=== PATIENT | female | born 1990 | race Hispanic/Latino ===

== ENCOUNTER 2018-03-07 20:35 | Observation (INO) | payer MEDICAID ==
[~2018-03-07] VITALS: Ht 152.4 cm; Wt 92.1 kg
[2018-03-07 20:56] LABS: APPEARANCE,URINE Clear (CLEAR); BILIRUBIN,URINE Negative (NEGATIVE); COLOR,URINE Yellow (YELLOW); GLUCOSE, URINE (UA) Negative (NEGATIVE); KETONES,URINE Negative (NEGATIVE); LEUKOCYTE ESTERASE ,URINE Trace (NEGATIVE); NITRATE,URINE Negative (NEGATIVE); OCCULT BLOOD,URINE Negative (NEGATIVE); PROTEIN,URINE Negative (NEGATIVE); UROBILINOGEN,URINE 0.2 mg/dL (0.2-1.0)
[2018-03-07 21:08] LABS: BACTERIA,URINE Rare /HPF (None Seen); RBC,URINE None Seen /HPF (0-1); WBC,URINE 0-1 /HPF (0-1)
[2018-03-07] MEDS ORDERED: PROMETHAZINE HCL 25 MG/ML 1ML AMPULE IM PRN (22:00)
[2018-03-07] MEDS ORDERED: MEPERIDINE-PF 50 MG/ML SYG IVP PRN (22:00)
[2018-03-07] MEDS ORDERED: LACTATED RINGERS 1000ML 1,000 ML IV PRN (22:02)
[2018-03-07] MEDS ORDERED: LACTATED RINGERS 1000ML 1,000 ML IV SCH (22:15)
[2018-03-07 22:26] LABS: BASOPHILS % (AUTO) 0.5 % (0.0-5.0); EOSINOPHILS % (AUTO) 1.2 % (0.0-8.0); LYMPHOCYTES % (AUTO) 16.3 % (21.0-51.0); MEAN CORPUSCULAR HEMOGLOBIN 25.3 pg (27.0-33.0); MEAN CORPUSCULAR VOLUME 76.8 fL (79-99); MONOCYTES % (AUTO) 5.4 % (3.0-13.0); NEUTROPHILS % (AUTO) 76.6 % (40.0-77.0); PLATELET COUNT (AUTO) 312 K/uL (130-400); RED BLOOD CELL COUNT(AUTO) 4.42 MIL/uL (4.00-5.50); RED CELL DISTRIBUTION WIDTH 17.1 % (11.0-15.5); WHITE BLOOD COUNT (AUTO) 7.2 K/uL (4.8-10.8)
[2018-03-07 22:35] LABS: CREATININE 0.6 mg/dL (0.5-1.5); POTASSIUM 3.6 mmol/L (3.5-5.1)
[2018-03-07 22:36] LABS: INR 0.91 (0.85-1.15); PARTIAL THROMBOPLASTIN TIME 26.2 SEC (26.3-35.5); PROTHROMBIN TIME 9.6 SEC (9.6-11.6)
[2018-03-07] MEDS ORDERED: LACTATED RINGERS 1000ML 1,000 ML IV ONE (22:37)
[2018-03-07 22:39] LABS: ALBUMIN 2.8 g/dL (3.5-5.0); BILIRUBIN,DIRECT 0.1 mg/dL (0.0-0.3); BILIRUBIN,TOTAL 0.3 mg/dL (0.2-1.0); TOTAL PROTEIN, SERUM 7.3 g/dL (6.0-8.3); URIC ACID 5.8 mg/dL (2.6-7.2)
[2018-03-07 23:07] LABS: AMPHET/METH SCREEN,URINE NEGATIVE (NEGATIVE); BARBITURATE SCREEN, URINE NEGATIVE (NEGATIVE); BENZODIAZEPINES SCREEN,URINE NEGATIVE (NEGATIVE); CANNABINOID SCREEN,URINE NEGATIVE (NEGATIVE); COCAINE SCREEN,URINE NEGATIVE (NEGATIVE); OPIATE SCREEN,URINE NEGATIVE (NEGATIVE); PHENCYCLIDINE SCREEN,URINE NEGATIVE (NEGATIVE)
[2018-03-07] MEDS ORDERED: PROMETHAZINE HCL 25 MG/ML 1ML AMPULE IM ONE (23:23)
[2018-03-07] MEDS ORDERED: MEPERIDINE-PF 50 MG/ML SYG ONE (23:23)
[2018-03-08] MEDS ORDERED: AMPICILLIN 2GM+NS 100ML 100 ML IV SCH
[2018-03-08] MEDS ORDERED: AMPICILLIN 2GM+NS 100ML 100 ML IV ONE (00:27)
[2018-03-08] MEDS ORDERED: AMPICILLIN 1GM+NS 50ML 50 ML IV SCH (04:30)
[2018-03-09 08:23] LABS: HEPATITIS Bs ANTIGEN SCREEN P Negative (Negative)
== END 2018-03-08 08:43 | disposition home or self-care (01) ==
LOC: EDH 20:35 → LDH 20:36
PROVIDERS: ADMIT Specialist; ATTEND Specialist
DX: O26.893 Other specified pregnancy related conditions, third trimester (principal); M54.9 Dorsalgia, unspecified; O99.343 Other mental disorders complicating pregnancy, third trimester; F32.9 Major depressive disorder, single episode, unspecified; O10.913 Unspecified pre-existing hypertension complicating pregnancy, third trimester; Z3A.37 37 weeks gestation of pregnancy
CPT/HCPCS: 36415; 80048; 80076; 80305; 81001; 82150; 82948; 83690; 84550; 85025; 85384; 85610; 85730; 86592; 86850; 86900; 86901; 87340; 96365; 96372; 99285; G0378 ×12; J0290 ×2; J2175; J2550; J7120; 96360; 96361

== ENCOUNTER 2018-03-12 10:31 | Inpatient (IN) | payer MEDICAID ==
[2018-03-12] MEDS ORDERED: LACTATED RINGERS 1000ML 1,000 ML IV PRN (10:56)
[2018-03-12] MEDS ORDERED: AMPICILLIN 2GM+NS 100ML 100 ML IV SCH (11:00)
[2018-03-12] MEDS ORDERED: OXYTOCIN 10 USP UNITS/ML 20 UNIT in LACTATED RINGERS 1000ML 1,000 ML IV SCH (11:00)
[2018-03-12] MEDS ORDERED: OXYTOCIN-LR 20 UNITS/1000 ML 1,000 ML IV SCH (11:00)
[2018-03-12] MEDS ORDERED: OXYTOCIN 10 USP UNITS/ML ONE ×2 (11:05→23:07)
[2018-03-12] MEDS ORDERED: LACTATED RINGERS 1000ML 1,000 ML IV ONE (11:05)
[2018-03-12 11:30] LABS: APPEARANCE,URINE Cloudy (CLEAR); BILIRUBIN,URINE Negative (NEGATIVE); COLOR,URINE Yellow (YELLOW); GLUCOSE, URINE (UA) Negative (NEGATIVE); KETONES,URINE Negative (NEGATIVE); LEUKOCYTE ESTERASE ,URINE Large (NEGATIVE); NITRATE,URINE Negative (NEGATIVE); OCCULT BLOOD,URINE Negative (NEGATIVE); PH,URINE 6.5 (5.0-8.0); PROTEIN,URINE POS 1+ (NEGATIVE); UROBILINOGEN,URINE 0.2 mg/dL (0.2-1.0)
[2018-03-12 11:34] LABS: BACTERIA,URINE Few /HPF (None Seen); SQUAMOUS EPITHELIAL CELL,UR Many /HPF (0-2)
[2018-03-12 11:38] LABS: BASOPHILS % (AUTO) 0.4 % (0.0-5.0); HEMATOCRIT 32.8 % (36-48); LYMPHOCYTES % (AUTO) 21.2 % (21.0-51.0); MEAN CORPUSCULAR HEMOGLOBIN 25.2 pg (27.0-33.0); MEAN CORPUSCULAR HGB CONC 33.1 g/dL (32.0-36.0); MEAN CORPUSCULAR VOLUME 76.3 fL (79-99); MONOCYTES % (AUTO) 6.4 % (3.0-13.0); PLATELET COUNT (AUTO) 292 K/uL (130-400); RED BLOOD CELL COUNT(AUTO) 4.29 MIL/uL (4.00-5.50); WHITE BLOOD COUNT (AUTO) 7.3 K/uL (4.8-10.8)
[2018-03-12 11:46] LABS: CREATININE 0.6 mg/dL (0.5-1.5); POTASSIUM 3.9 mmol/L (3.5-5.1)
[2018-03-12 11:49] LABS: INR 0.91 (0.85-1.15); PARTIAL THROMBOPLASTIN TIME 26.8 SEC (26.3-35.5); PROTHROMBIN TIME 9.6 SEC (9.6-11.6)
[2018-03-12 11:50] LABS: ALBUMIN 2.6 g/dL (3.5-5.0); BILIRUBIN,TOTAL 0.2 mg/dL (0.2-1.0); TOTAL PROTEIN, SERUM 6.8 g/dL (6.0-8.3)
[2018-03-12] MEDS: AMPICILLIN 1GM+NS 50ML 50 ML IV SCH ×4 (15:45→23:00)
[2018-03-12] MEDS ORDERED: MEPERIDINE-PF 50 MG/ML SYG IVP PRN ×2 (16:45→18:45)
[2018-03-12] MEDS ORDERED: PROMETHAZINE HCL 25 MG/ML 1ML AMPULE IM SCH (16:45)
[2018-03-12] MEDS ORDERED: LACTATED RINGERS 500 ML 500 ML IV PRN (16:45)
[2018-03-12] MEDS ORDERED: EPHEDRINE SULFATE 50 MG/ML AMPULE IVP PRN (16:45)
[2018-03-12] MEDS ORDERED: NALOXONE HCL 0.4 MG/1 ML ML IV PRN (16:45)
[2018-03-12] MEDS ORDERED: PROMETHAZINE HCL 25 MG/ML 1ML AMPULE IM PRN ×2 (18:45→23:30)
[2018-03-12] MEDS ORDERED: CEFAZOLIN SODIUM 1 GM VIAL ONE (22:11)
[2018-03-12] MEDS ORDERED: CEFAZOLIN SODIUM 1 GM VIAL IVP PRN (22:15)
[2018-03-12] MEDS ORDERED: SENSORCAINE/DEXT/PF 0.75% 2ML AMP IJ ONE (22:26)
[2018-03-12] MEDS ORDERED: DEXAMETHASONE SOD PHOSPHATE 10MG/ML 1ML VIAL ONE (23:07)
[2018-03-12] MEDS ORDERED: ONDANSETRON HCL 4 MG/2 ML VIAL ONE (23:07)
[2018-03-12] MEDS ORDERED: PHENYLEPHRINE HCL 10 MG/ML 1ML VIAL IV ONE (23:07)
[2018-03-12] MEDS ORDERED: SODIUM CHLORIDE 0.9% 10 ML VIAL ONE (23:07)
[2018-03-12] MEDS ORDERED: OXYTOCIN 10 UNIT/1ML 10ML VIAL ONE (23:07)
[2018-03-12] MEDS ORDERED: LIDOCAINE HCL-MPF 2% 10ML AMP IJ ONE (23:10)
[2018-03-12] MEDS ORDERED: OXYTOCIN-LR 20 UNITS/1000 ML 1,000 ML IV PRN (23:24)
[2018-03-12] MEDS ORDERED: SODIUM CHLORIDE 0.9% 10 ML VIAL IVP PRN (23:30)
[2018-03-12] MEDS ORDERED: MEPERIDINE-PF 75 MG/ML SYG IM PRN (23:30)
[2018-03-12] MEDS ORDERED: DEXTROSE 5 %-0.45 % NACL 1,000 ML IV PRN (23:30)
[2018-03-13] MEDS ORDERED: LACTATED RINGERS 1000ML 1,000 ML IV ONE (05:12)
[2018-03-13] MEDS ORDERED: OXYTOCIN 10 USP UNITS/ML ONE (05:13)
[2018-03-13 07:45] LABS: MEAN CORPUSCULAR HEMOGLOBIN 26.5 pg (27.0-33.0); MEAN CORPUSCULAR VOLUME 75.8 fL (79-99); NUCLEATED RED BLOOD CELLS 0.1 % (0.0-0.19); PLATELET COUNT (AUTO) 278 K/uL (130-400); RED BLOOD CELL COUNT(AUTO) 3.42 MIL/uL (4.00-5.50); RED CELL DISTRIBUTION WIDTH 16.6 % (11.0-15.5); WHITE BLOOD COUNT (AUTO) 13.6 K/uL (4.8-10.8)
[2018-03-13 08:21] LABS: HEPATITIS Bs ANTIGEN SCREEN P Negative (Negative)
[2018-03-13] MEDS ORDERED: SODIUM CHLORIDE 0.9% 10 ML VIAL IVP PRN (09:00)
[2018-03-13] MEDS ORDERED: ACETAMINOPHEN EXTRA STRENGTH 500 MG TABLET PO PRN (09:00)
[2018-03-13] MEDS ORDERED: ACETAMINOPHEN-CODEINE 300/30MG TAB PO PRN (09:00)
[2018-03-13] MEDS ORDERED: MEASLES/MUMPS/RUBELLA VACCINE, LIVE 0.5 ML/VIAL SQ SCH (09:00)
[2018-03-13] MEDS ORDERED: DIPH,PERTUSS(ACELL),TET VAC/PF 0.5 ML VIAL IM SCH (09:00)
[2018-03-13] MEDS ORDERED: DIPHENHYDRAMINE HCL 25 MG CAPSULE PO PRN (09:00)
[2018-03-13] MEDS ORDERED: LANOLIN 30GM OINTMENT TP PRN (09:00)
[2018-03-13] MEDS ORDERED: BISACODYL 10 MG SUPP.RECT RC PRN (09:00)
[2018-03-13 09:31] VITALS: BP 137/89
[2018-03-13] MEDS: AMPICILLIN 1GM+NS 50ML 50 ML IV SCH ×2 (11:00→15:00)
[2018-03-13] MEDS: IBUPROFEN 800 MG TAB PO SCH ×2 (11:27→18:34)
[2018-03-13] MEDS: DOCUSATE SODIUM 100 MG CAP PO SCH ×2 (11:27→20:44)
[2018-03-13] MEDS: SIMETHICONE 80 MG TAB.CHEW PO PRN ×2 (11:27→20:44)
[2018-03-13 11:38] VITALS: BP 136/89
[2018-03-13 15:40] VITALS: BP 121/76
[2018-03-13 19:37] VITALS: BP 132/70
[2018-03-13] MEDS ORDERED: IBUPROFEN 800 MG TAB PO SCH (23:30)
[2018-03-14 00:47] VITALS: BP 128/97
[2018-03-14] MEDS: IBUPROFEN 800 MG TAB PO SCH ×2 (01:02→09:13)
[2018-03-14 05:01] VITALS: BP 122/77
[2018-03-14 08:08] VITALS: BP 115/70
[2018-03-14] MEDS: SIMETHICONE 80 MG TAB.CHEW PO PRN (09:12)
[2018-03-14] MEDS: DOCUSATE SODIUM 100 MG CAP PO SCH (09:13)
[2018-03-14 12:00] VITALS: BP 138/86
== END 2018-03-14 13:10 | disposition home or self-care (01) | DRG 540 ==
LOC: LDH 10:31 → WSH 03-13 09:30 → EDSTATUS 03-22 10:31
PROVIDERS: ADMIT Specialist; ATTEND Specialist
PROC: 10D00Z1 Extraction of Products of Conception, Low, Open Approach (ICD-10-PCS; principal; 2018-03-12 22:00)
DX: O14.04 Mild to moderate pre-eclampsia, complicating childbirth (principal); O61.9 Failed induction of labor, unspecified; Z37.0 Single live birth; Z3A.38 38 weeks gestation of pregnancy; Z88.8 Allergy status to other drugs, medicaments and biological substances; Z91.018 Allergy to other foods
CPT/HCPCS: 36415; 59510; 80053; 81001; 84550; 85025; 85027; 85384; 85610; 85730; 86592; 86850; 86900; 86901; 87340; 90715; A4344; A4606; J0290; J0690; J1100; J2175; J2370; J2405; J2550; J2590; J3490; J7120

== ENCOUNTER 2018-07-10 03:43 | Inpatient (IN) | payer MEDICAID ==
[~2018-07-10] VITALS: Ht 152.4 cm; Wt 81.6 kg
[2018-07-10 04:01] LABS: BASOPHILS % (AUTO) 0.3 % (0.0-5.0); EOSINOPHILS % (AUTO) 1.2 % (0.0-8.0); HEMATOCRIT 41.7 % (36-48); LYMPHOCYTES % (AUTO) 8.4 % (21.0-51.0); MEAN CORPUSCULAR HEMOGLOBIN 25.4 pg (27.0-33.0); MEAN CORPUSCULAR HGB CONC 32.9 g/dL (32.0-36.0); MEAN CORPUSCULAR VOLUME 77.2 fL (79-99); MONOCYTES % (AUTO) 3.1 % (3.0-13.0); PLATELET COUNT (AUTO) 251 K/uL (130-400); RED CELL DISTRIBUTION WIDTH 18.5 % (11.0-15.5); WHITE BLOOD COUNT (AUTO) 11.9 K/uL (4.8-10.8)
[2018-07-10] MEDS ORDERED: SODIUM CHLORIDE 0.9% 1000ML 1,000 ML IV ONE ×3 (04:02→05:53)
[2018-07-10 04:12] LABS: CREATININE 0.7 mg/dL (0.5-1.5); POTASSIUM 3.7 mmol/L (3.5-5.1)
[2018-07-10 04:16] LABS: ALBUMIN 4.3 g/dL (3.5-5.0); BILIRUBIN,TOTAL 0.3 mg/dL (0.2-1.0); TOTAL PROTEIN, SERUM 8.7 g/dL (6.0-8.3)
[2018-07-10] MEDS ORDERED: ONDANSETRON HCL 4 MG/2 ML VIAL ONE (04:27)
[2018-07-10 05:02] LABS: APPEARANCE,URINE Cloudy (CLEAR); BILIRUBIN,URINE Negative (NEGATIVE); COLOR,URINE PINK (YELLOW); GLUCOSE, URINE (UA) Negative (NEGATIVE); KETONES,URINE Negative (NEGATIVE); LEUKOCYTE ESTERASE ,URINE Moderate (NEGATIVE); NITRATE,URINE Negative (NEGATIVE); OCCULT BLOOD,URINE Large (NEGATIVE); PROTEIN,URINE Trace (NEGATIVE); UROBILINOGEN,URINE 0.2 mg/dL (0.2-1.0)
[2018-07-10 05:06] LABS: HCG,QUAL RESULT NEGATIVE (NEGATIVE)
[2018-07-10 05:08] LABS: BACTERIA,URINE Few /HPF (None Seen); MUCUS,URINE Moderate LPF (None Seen); RBC,URINE TNTC /HPF (0-1); SQUAMOUS EPITHELIAL CELL,UR Few /HPF (0-2)
[2018-07-10 05:09] LABS: AMPHET/METH SCREEN,URINE NEGATIVE (NEGATIVE); BARBITURATE SCREEN, URINE NEGATIVE (NEGATIVE); BENZODIAZEPINES SCREEN,URINE NEGATIVE (NEGATIVE); CANNABINOID SCREEN,URINE NEGATIVE (NEGATIVE); COCAINE SCREEN,URINE NEGATIVE (NEGATIVE); OPIATE SCREEN,URINE NEGATIVE (NEGATIVE); PHENCYCLIDINE SCREEN,URINE NEGATIVE (NEGATIVE)
[2018-07-10] MEDS ORDERED: ACETAMINOPHEN EXTRA STRENGTH 500 MG TABLET ONE (06:35)
[2018-07-10] MEDS ORDERED: CEFTRIAXONE SODIUM 1 GM ONE (06:35)
[2018-07-10] MEDS: CEFTRIAXONE SODIUM 1 GM IV SCH (07:00)
[2018-07-10] MEDS ORDERED: ACETAMINOPHEN 325 MG TAB PO PRN ×3 (07:00→09:30)
[2018-07-10] MEDS ORDERED: ZOLPIDEM TARTRATE 5 MG TAB PO PRN (07:00)
[2018-07-10] MEDS ORDERED: MAG HYDROX/AL HYDROX/SIMETH ES 30 ML SUSP UDCUP PO PRN (07:00)
[2018-07-10] MEDS ORDERED: HYDRALAZINE HCL 20 MG/ML VIAL IV PRN (07:00)
[2018-07-10] MEDS ORDERED: ONDANSETRON HCL 4 MG/2 ML VIAL IV PRN ×2 (07:00→09:30)
[2018-07-10] MEDS ORDERED: LACTULOSE 20 GM/30 ML UDCUP PO PRN (07:00)
[2018-07-10 07:35] VITALS: BP 112/71
[2018-07-10 07:51] LABS: CRP QUANTITATIVE 21.2 mg/L (0.00-9.0)
[2018-07-10] MEDS: ENOXAPARIN SODIUM 40 MG/0.4 ML SYRINGE SQ SCH (08:56)
[2018-07-10] MEDS: SODIUM CHLORIDE 0.9% 1000ML 1,000 ML IV SCH ×4 (08:56→23:27)
[2018-07-10] MEDS ORDERED: PANTOPRAZOLE 40 MG/VIAL IVP SCH (09:00)
[2018-07-10 12:29] VITALS: BP 116/65
[2018-07-10] MEDS: METRONIDAZOLE 500MG/100ML BAG 100 ML IV SCH ×2 (14:23→20:16)
[2018-07-10 17:21] VITALS: BP 122/57
[2018-07-10 17:33] VITALS: BP 124/68
[2018-07-10 20:00] VITALS: BP 114/69
[2018-07-10] MEDS: FAMOTIDINE/PF 20 MG/2 ML VIAL IV SCH (20:16)
[2018-07-10 23:38] VITALS: BP 109/66
[2018-07-11 03:53] VITALS: BP 120/67
[2018-07-11 04:19] LABS: HEMATOCRIT 32.1 % (36-48); MEAN CORPUSCULAR HEMOGLOBIN 26.8 pg (27.0-33.0); MEAN CORPUSCULAR HGB CONC 34.2 g/dL (32.0-36.0); MEAN CORPUSCULAR VOLUME 78.5 fL (79-99); NUCLEATED RED BLOOD CELLS 0.1 % (0.0-0.19); PLATELET COUNT (AUTO) 195 K/uL (130-400); RED BLOOD CELL COUNT(AUTO) 4.08 MIL/uL (4.00-5.50); RED CELL DISTRIBUTION WIDTH 18.3 % (11.0-15.5)
[2018-07-11 04:35] LABS: CREATININE 0.7 mg/dL (0.5-1.5)
[2018-07-11 04:36] LABS: POTASSIUM 2.9 mmol/L (3.5-5.1)
[2018-07-11] MEDS ORDERED: MAGNESIUM 2GM PREMIX 50ML 50 ML IV PRN (05:00)
[2018-07-11] MEDS ORDERED: POTASSIUM CHLORIDE 20MEQ/100ML 100 ML IV PRN (05:00)
[2018-07-11] MEDS ORDERED: LIDOCAINE HCL-MPF 1% 2ML VIAL IVP PRN (05:00)
[2018-07-11] MEDS ORDERED: POTASSIUM CHLORIDE 10% ELIXIR 20 MEQ/15 ML UDCUP PO PRN (05:00)
[2018-07-11 05:02] LABS: BAND NEUTROPHILS % (MANUAL) 4 % (0-2); EOSINOPHILS % (MANUAL) 1 % (1-6); LYMPHOCYTES % (MANUAL) 27 % (22-44); MAN.DIFF COMMENT-IMPRESSION MANUAL DIFFERENTIAL; MONOCYTES % (MANUAL) 8 % (2-9); SEGMENTED NEUTROPHILS % 60 % (40-70)
[2018-07-11] MEDS: METRONIDAZOLE 500MG/100ML BAG 100 ML IV SCH ×3 (05:18→22:01)
[2018-07-11] MEDS: CEFTRIAXONE SODIUM 1 GM IV SCH (05:18)
[2018-07-11] MEDS: SODIUM CHLORIDE 0.9% 1000ML 1,000 ML IV SCH ×4 (05:23→22:46)
[2018-07-11] MEDS: POTASSIUM CHLORIDE 20 MEQ ERTAB PO PRN ×3 (06:09→16:55)
[2018-07-11 08:00] VITALS: BP 115/66
[2018-07-11] MEDS: FAMOTIDINE/PF 20 MG/2 ML VIAL IV SCH ×2 (09:24→22:00)
[2018-07-11] MEDS: ENOXAPARIN SODIUM 40 MG/0.4 ML SYRINGE SQ SCH (09:24)
[2018-07-11 12:00] VITALS: BP 116/58
[2018-07-11 16:00] VITALS: BP 122/62
[2018-07-11 20:00] VITALS: BP 120/79
[2018-07-12] VITALS: BP 129/77
[2018-07-12] MEDS: SODIUM CHLORIDE 0.9% 1000ML 1,000 ML IV SCH ×2 (03:01→09:49)
[2018-07-12 04:00] VITALS: BP 119/66
[2018-07-12 04:49] LABS: HEMATOCRIT 34.3 % (36-48); MEAN CORPUSCULAR HEMOGLOBIN 25.9 pg (27.0-33.0); MEAN CORPUSCULAR HGB CONC 33.1 g/dL (32.0-36.0); MEAN CORPUSCULAR VOLUME 78.2 fL (79-99); PLATELET COUNT (AUTO) 214 K/uL (130-400); RED BLOOD CELL COUNT(AUTO) 4.39 MIL/uL (4.00-5.50); RED CELL DISTRIBUTION WIDTH 18.3 % (11.0-15.5); WHITE BLOOD COUNT (AUTO) 4.6 K/uL (4.8-10.8)
[2018-07-12 04:59] LABS: CREATININE 0.7 mg/dL (0.5-1.5); POTASSIUM 3.1 mmol/L (3.5-5.1)
[2018-07-12] MEDS: METRONIDAZOLE 500MG/100ML BAG 100 ML IV SCH ×2 (05:09→13:21)
[2018-07-12] MEDS: POTASSIUM CHLORIDE 20 MEQ ERTAB PO PRN ×3 (06:26→09:57)
[2018-07-12] MEDS: CEFTRIAXONE SODIUM 1 GM IV SCH (06:26)
[2018-07-12 08:14] VITALS: BP 113/68
[2018-07-12] MEDS ORDERED: LEVO500T2 PO (09:31)
[2018-07-12] MEDS: FAMOTIDINE/PF 20 MG/2 ML VIAL IV SCH (09:55)
[2018-07-12 12:21] VITALS: BP 131/86
== END 2018-07-12 14:00 | disposition home or self-care (01) | DRG 720 ==
LOC: EDH 03:43 → EDHIP 03:44 → 3CH 07:39
PROVIDERS: ADMIT Internal Medicine; ATTEND Internal Medicine
PROC: 3E0234Z Introduction of Serum, Toxoid and Vaccine into Muscle, Percutaneous Approach (ICD-10-PCS; principal; 2018-07-11)
DX: A41.9 Sepsis, unspecified organism (principal); E86.0 Dehydration; K52.9 Noninfective gastroenteritis and colitis, unspecified; N39.0 Urinary tract infection, site not specified; E87.6 Hypokalemia; B95.1 Streptococcus, group B, as the cause of diseases classified elsewhere; Z82.49 Family history of ischemic heart disease and other diseases of the circulatory system; Z83.3 Family history of diabetes mellitus; Z90.49 Acquired absence of other specified parts of digestive tract; Z82.5 Family history of asthma and other chronic lower respiratory diseases; Z23 Encounter for immunization
CPT/HCPCS: 36415; 80048; 80053; 80305; 80339; 81001; 81025; 83690; 83735; 84702; 85025; 85027; 86140; 87040; 87088; 87507; 87804; 93005; 99291; A4218; C9113; G0008; J0696; J1650; J2405; J3480; J3490; J7030

== ENCOUNTER 2019-12-05 17:51 | Emergency (ER) | payer MEDICAID ==
[~2019-12-05 17:51] MED LIST: LEVO500T2 PO
[2019-12-05] MEDS ORDERED: KETOROLAC TROMETHAMINE 30MG/ML ONE (18:23)
== END 2019-12-05 21:09 | disposition home or self-care (01) ==
LOC: EDH 17:51
DX: N64.4 Mastodynia (principal); M94.0 Chondrocostal junction syndrome [Tietze]; Z98.890 Other specified postprocedural states; Z90.49 Acquired absence of other specified parts of digestive tract
CPT/HCPCS: 71046; 96372; 99283; J1885